=== PATIENT | female | born 1995 | race Caucasian/White ===

== ENCOUNTER 2023-02-11 08:52 | Emergency (ER) | payer MEDICAID ==
[~2023-02-11] VITALS: Ht 162.6 cm; Wt 86.0 kg
[2023-02-11 09:00] VITALS: O2SAT 100
[2023-02-11] MEDS ORDERED: IBUPROFEN 600MG TABLET PO STA (10:16)
[2023-02-11 10:48] VITALS: BP 132/51; PULSE 83; RESP 16; TEMP 97.9
== END 2023-02-11 10:50 | disposition home or self-care (01) ==
LOC: ER 09:04
DX: M25.531 Pain in right wrist (principal); Z91.040 Latex allergy status; W19.XXXA Unspecified fall, initial encounter; Y93.89 Activity, other specified; Y92.89 Other specified places as the place of occurrence of the external cause; Y99.8 Other external cause status
CPT/HCPCS: 29125; 73110; 99283